=== PATIENT | male | born 1970 | race Caucasian/White ===

== ENCOUNTER → 2018-02-21 | Day surgery (SDC) | payer OTHER ==
[2018-02-17 13:02] VITALS: BMI 28.5
[~2018-02-21] MED LIST: ALPRAZolam 0.25 MG TAB PO PRN; ALPRAZolam 0.5 MG TAB PO PRN; ASPIRIN 325 MG TAB PO STA; ATORVASTATIN 80 MG TAB PO STA; HEPARIN SODIUM 1,000 UN/ML (10ML VL) ONE; IOHEXOL 350 MG/ML 125ML BOTTLE INJ ONE; LIDOCAINE 2% INJ 20 MG/ML (20 ML MDV) ONE; MIDAZOLAM 2 MG/2 ML VIAL ONE; NITROGLYCERIN SL TABS 0.4 MG TAB SUBLINGUAL PRN; RX INFO: IV CONTRAST WAS GIVEN 1 EACH MISC MISCELLANE PRN; SODIUM CHLORIDE 0.9% 1,000 ML IV SCH; SODIUM CHLORIDE 0.9% 1,000 ML in EMPTY BAG 1 BAG IV ONE; VERAPAMIL 2.5 MG/ML 2 ML AMP ONE
[2018-02-21 06:34] VITALS: RESP 18; TEMP 98.2
[2018-02-21 06:40] LABS: Basophils # (A) 0.1 k/uL (0-0.2); Basophils % (A) 1 %; Eosinophils # (A) 0.3 k/uL (0-0.7); Eosinophils % (A) 4 %; HGB 16.1 gm/dL (13.0-17.5); Lymphocytes # (A) 2.1 k/uL (1.0-4.8); Lymphocytes % (A) 26 %; MCH 31.7 pg (25.0-35.0); MCHC 35.9 g/dL (31.0-37.0); MCV 88.3 fL (80.0-100.0); Mean Platelet Volume 6.9; Monocytes # (A) 0.5 k/uL (0-1.0); Monocytes % (A) 6 %; Neutrophils % (A) 62 %; Platelet Count 276 k/uL (150-450); RBC 5.09 m/uL (4.30-5.90); RDW 12.9 % (11.5-15.5); WBC 8.1 k/uL (3.8-10.6)
[2018-02-21 06:51] LABS: Anion Gap 12 mmol/L; Blood Urea Nitrogen 10 mg/dL (9-20); Carbon Dioxide 24 mmol/L (22-30); Chloride 107 mmol/L (98-107); Glucose 93 mg/dL (74-99); Potassium 4.2 mmol/L (3.5-5.1); Sodium 143 mmol/L (137-145)
[2018-02-21] MEDS: MIDAZOLAM 2 MG/2 ML VIAL IV ONE ×3 (07:56→08:15)
[2018-02-21] MEDS: LIDOCAINE 2% INJ 20 MG/ML SQ ONE ×2 (07:59→08:16)
--- NOTE | 2018-02-21 09:59 | CC ---
CARDIAC CATHETERIZATION REPORT DATE OF SERVICE: 02/21/2018 PERFORMING PHYSICIAN: Iftikhar Leggett MD, Blanker Operator. PROCEDURE PERFORMED: 1. Selective right and left coronary angiogram. 2. Left heart catheterization. INDICATION: This is a pleasant 47-year-old gentleman who is known to have coronary artery disease and prior stenting of the RCA in the setting of acute inferior ST-elevation myocardial infarction, was experiencing intermittent episodes of chest discomfort concerning for angina. He underwent a stress test and that revealed apical ischemia. In view of that, a heart catheterization was recommended. APPROACH: Right common femoral artery. COMPLICATION: None. LEVEL OF SEDATION: Moderate at 33 minutes. PROCEDURE DESCRIPTION: After obtaining an informed consent, the patient was brought to the Cardiac Painting Supervisor. Initially, I tried to access the right radial artery, but I was unable. At that point, I did access the right common femoral artery and I did a 6-Swedish sheath in the right common femoral artery. After that, I did perform selective right and left coronary angiogram using JR4 and JL4 catheter. Subsequently, I did left heart catheterization using 6-Swedish pigtail catheter. The procedure was completed without any complication. SELECTIVE CORONARY ANGIOGRAM: 1. The right coronary artery is a large caliber vessel and it is a dominant vessel. The proximal RCA is stented with intermediate in-stent restenosis, appeared to be in the range of 50% to 60%. 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 It does have a RHONDA-3 flow. The RCA distally appeared to be angiographically normal. It bifurcates into PDA and PLV branches, both are angiographically normal. 2. The left main is angiographically normal. It bifurcates into the left circumflex and left anterior descending artery. 3. The left circumflex is a large caliber vessel and it is a nondominant vessel. The proximal left circumflex is angiographically normal. The mid left circumflex is normal as well and gives rise into 2 obtuse marginal branches. The circumflex distally is angiographically normal. 4. The left anterior descending artery. the proximal LAD appeared to be angiographically normal. It does gives rise into 2 diagonal branches both are angiographically normal. The mid LAD is normal and gives rise into a third diagonal branch which seems to be angiographically normal. The LAD distally is angiographically normal. HEMODYNAMICS: The left ventricular end-diastolic pressure was 12 mmHg and no gradient was identified across the aortic valve. CONCLUSION: 1. 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 The vessel seems to be flow limiting. The intermediate disease in the mid right coronary artery is involving a stent that goes to the acute marginal branch. 2. Normal left main coronary artery. 3. Normal left circumflex coronary artery. 4. Normal left anterior descending artery. 5. Normal left ventricular end-diastolic pressure. POSTPROCEDURE MANAGEMENT: Maximize medical treatment and follow up with the patient. MMODL / IJN: [id number] /
--- NOTE | 2018-02-21 10:08 | LTR ---
February 21, 2018 Re: Pavel Fisher Dear Dr. Sheridan: Mr. Pavel Fisher underwent a heart catheterization because of intermittent episodes of chest discomfort concerning for angina as well as abnormal myocardial perfusion imaging stress test. The heart catheterization revealed intermediate disease involving the proximal and mid RCA. to be flow limiting. I want to thank you for allowing me to participate in his care and please do not hesitate to call if you have any question or concern. Sincerely, MD SHANIA Eisenberg / MAICOLN: [id number] /
[2018-02-21 15:03] VITALS: BP 104/63; PULSE 92
== END ==
LOC: CATHCVL 05:55
PROVIDERS: ATTEND Internal Medicine Interventional Cardiology
DX: I25.110 Atherosclerotic heart disease of native coronary artery with unstable angina pectoris (principal); T82.855A Stenosis of coronary artery stent, initial encounter; I10 Essential (primary) hypertension; F17.210 Nicotine dependence, cigarettes, uncomplicated; E78.5 Hyperlipidemia, unspecified; Z82.49 Family history of ischemic heart disease and other diseases of the circulatory system; Z79.02 Long term (current) use of antithrombotics/antiplatelets; Z79.82 Long term (current) use of aspirin; Z79.899 Other long term (current) drug therapy; Z88.8 Allergy status to other drugs, medicaments and biological substances
CPT/HCPCS: 93458; 80048; 85025; C1769 ×3; C1894 ×2; C1760; J2001; J2250; Q9967

== ENCOUNTER → 2018-03-28 | Outpatient (CLI) | payer OTHER ==
[2018-03-28 14:41] LABS: HCT 48.2 % (39.0-53.0); HGB 16.5 gm/dL (13.0-17.5); MCH 30.8 pg (25.0-35.0); MCHC 34.2 g/dL (31.0-37.0); MCV 90.1 fL (80.0-100.0); Platelet Count 325 k/uL (150-450); RBC 5.35 m/uL (4.30-5.90); RDW 13.2 % (11.5-15.5)
[2018-03-28 14:53] LABS: Anion Gap 14 mmol/L; Blood Urea Nitrogen 15 mg/dL (9-20); Carbon Dioxide 26 mmol/L (22-30); Chloride 103 mmol/L (98-107); Potassium 4.8 mmol/L (3.5-5.1); Sodium 143 mmol/L (137-145)
== END ==
LOC: LABPAT 14:08
PROVIDERS: ATTEND Internal Medicine Interventional Cardiology
DX: Z01.812 Encounter for preprocedural laboratory examination (principal); R07.9 Chest pain, unspecified
CPT/HCPCS: 36415; 80051; 82565; 84520; 85027

== ENCOUNTER 2018-03-30 07:56 | Day surgery (SDC) | payer OTHER ==
[2018-03-28 16:03] VITALS: BMI 28.6
[~2018-03-30 07:56] MED LIST changes: -ALPRAZolam 0.25 MG TAB PO PRN; -ALPRAZolam 0.5 MG TAB PO PRN; -HEPARIN SODIUM 1,000 UN/ML (10ML VL) ONE; -IOHEXOL 350 MG/ML 125ML BOTTLE INJ ONE; -LIDOCAINE 2% INJ 20 MG/ML (20 ML MDV) ONE; -MIDAZOLAM 2 MG/2 ML VIAL ONE; -NITROGLYCERIN SL TABS 0.4 MG TAB SUBLINGUAL PRN; -RX INFO: IV CONTRAST WAS GIVEN 1 EACH MISC MISCELLANE PRN; -SODIUM CHLORIDE 0.9% 1,000 ML IV SCH; -VERAPAMIL 2.5 MG/ML 2 ML AMP ONE
[2018-03-30] MEDS: MIDAZOLAM 2 MG/2 ML VIAL IV ONE ×2 (09:30→09:34)
[2018-03-30] MEDS ORDERED: LIDOCAINE 2% INJ 20 MG/ML SQ ONE ×2 (09:32→09:34)
[2018-03-30] MEDS ORDERED: BIVALIRUDIN BOLUS 250 MG/50 ML IV ONE (09:35)
[2018-03-30] MEDS ORDERED: BIVALIRUDIN 250 MG in SODIUM CHLORIDE 0.9% 50 ML IV ONE ×2 (09:36→10:28)
[2018-03-30] MEDS ORDERED: fentaNYL (PF) 50 MCG/ML 2 ML AMP IV ONE (09:40)
[2018-03-30] MEDS: NITROGLYCERIN 1000MCG/10ML SYRINGE INTRACORON ONE ×3 (09:43→10:36)
[2018-03-30] MEDS ORDERED: IOPAMIDOL-370 125ML BTL INJ ONE (10:29)
[2018-03-30] MEDS ORDERED: CLOPIDOGREL 75 MG TAB PO ONE (10:38)
[2018-03-30] MEDS ORDERED: IOPAMIDOL-370 100ML BTL INJ ONE (10:41)
[2018-03-30] MEDS ORDERED: NITROGLYCERIN SL TABS 0.4 MG TAB SUBLINGUAL PRN ×2 (10:45→10:46)
[2018-03-30] MEDS ORDERED: MAG HYDROX/AL HYDROX/SIMETH 30 ML CUP PO PRN (10:46)
[2018-03-30] MEDS ORDERED: RX INFO: IV CONTRAST WAS GIVEN 1 EACH MISC MISCELLANE PRN (10:46)
[2018-03-30] MEDS ORDERED: ZOLPIDEM 5 MG TAB PO PRN (10:46)
[2018-03-30] MEDS ORDERED: ATROPINE SULFATE 0.1 MG/ML 10ML SYRINGE IV PRN (10:46)
[2018-03-30] MEDS ORDERED: SODIUM CHLORIDE 0.9% 1,000 ML IV SCH (11:00)
[2018-03-30 17:23] VITALS: RESP 18
--- NOTE | 2018-03-30 19:48 | PTCA ---
PERCUTANEOUSTRANS CORORONARY ANGIOGRAPHY DATE OF SERVICE: March 30, 2018 PERFORMING PHYSICIAN: Iftikhar Leggett MD, erisa attorney. PROCEDURE PERFORMED: 1. Selective right coronary angiogram. 2. Intravascular ultrasound IVUS of the RCA. 3. Successful stenting of the mid RCA using 3.0 x 18 mm Xience ESSENCE with good angiographic results. 4. Successful stenting of the proximal RCA using 3.5 x 15 mm Xience ESSENCE with good angiographic results. INDICATION: This is a pleasant 47-year-old gentleman with known history of coronary artery disease and prior stenting of the RCA, who was experiencing unstable angina. He underwent a heart catheterization a few weeks ago and that showed intermediate to severe disease involving the mid RCA. He was treated medically, but continues to have chest discomfort. In view of that, a PCI of the RCA was recommended. APPROACH: Right common femoral artery. COMPLICATION: None. LEVEL OF SEDATION: Moderate, sedation length of 69 minutes. PROCEDURE DESCRIPTION: After obtaining an informed consent, the patient was brought to cardiac labor utilization superintendent. The right common femoral artery was cannulated using micropuncture technique, the micropuncture wire passed easily, then I placed a 6-Cypriot sheath in the right common femoral artery. After that, I did start anticoagulation using Angiomax. Subsequently I did engage the RCA using JR4 guiding catheter. A whisper wire was used to wire the right coronary artery and I advanced the wire to the PLV branch of the RCA. Initially, I tried to advance 2.5 x 12 mm balloon but the balloon will not cross the stented segment in the mid RCA. At that point, I was able to advance 1.5 mm balloon and did multiple balloon angioplasty of the mid RCA using the 1.5 mm balloon. After that I did advance the 2.5 x 12 mm balloon and I did again balloon angioplasty of the mid RCA where the balloon was inflated under 14 atmospheres for 20 seconds. Subsequently I was able to advance 3.0 x 18 mm Xience ESSENCE where the stent was positioned under fluoroscopy guidance and deployed under 14 atmospheres for 20 seconds with the following angiogram showing good angiographic results. There was a lesion intermediate to severe lesion involving the proximal RCA, but at that point, I decided to do an IVUS of that lesion, so after that IVUS catheter was advanced to the proximal RCA and I did manual pullback. The minimal luminal area of the proximal RCA was 3.5 mm2, so I decided to stent that segment where I deployed 3.5 x 15 mm Xience ESSENCE where the stent was positioned under fluoroscopy guidance and deployed under its nominal pressure. The following angiogram showed good angiographic results and the procedure was completed without any complication. POSTPROCEDURE MANAGEMENT: 1. Dual anti-platelet therapy. 2. Coronary risk factor modifications. 3. Follow up with the patient. MMBALWINDER / MAICOLN: [id number] /
[2018-03-30] MEDS: METOPROLOL TARTRATE 12.5 MG TAB PO SCH (20:37)
[2018-03-30] MEDS ORDERED: LOSARTAN 25 MG TAB PO SCH (21:00)
[2018-03-30 21:25] LABS: Glucose,Whole Blood 139 mg/dL (75-99)
[2018-03-31 06:11] LABS: Glucose,Whole Blood 118 mg/dL (75-99)
[2018-03-31 06:48] LABS: Basophils % (A) 0 %; Eosinophils # (A) 0.1 k/uL (0-0.7); Eosinophils % (A) 1 %; HCT 43.8 % (39.0-53.0); HGB 14.9 gm/dL (13.0-17.5); Lymphocytes # (A) 1.9 k/uL (1.0-4.8); Lymphocytes % (A) 27 %; MCH 30.1 pg (25.0-35.0); MCHC 33.9 g/dL (31.0-37.0); MCV 88.7 fL (80.0-100.0); Mean Platelet Volume 7.2; Monocytes # (A) 0.4 k/uL (0-1.0); Monocytes % (A) 6 %; Neutrophils # (A) 4.7 k/uL (1.3-7.7); Neutrophils % (A) 65 %; Platelet Count 267 k/uL (150-450); RBC 4.94 m/uL (4.30-5.90); WBC 7.2 k/uL (3.8-10.6)
[2018-03-31 07:06] LABS: Anion Gap 10 mmol/L; Blood Urea Nitrogen 12 mg/dL (9-20); Calcium 9.1 mg/dL (8.4-10.2); Carbon Dioxide 25 mmol/L (22-30); Chloride 105 mmol/L (98-107); Glucose 109 mg/dL (74-99); Potassium 4.1 mmol/L (3.5-5.1); Sodium 140 mmol/L (137-145)
[2018-03-31] MEDS ORDERED: PANTOPRAZOLE 40 MG TABLET PO SCH (07:30)
[2018-03-31] MEDS ORDERED: ISOSORBIDE MONONITRATE ER 30 MG TAB.ER.24H PO SCH (09:00)
[2018-03-31] MEDS ORDERED: NON-FORMULARY DRUG (Omega-3 Fatty Acids/Fish Oil [Fish Oil 1,000 Mg Softgel] 1 EACH) PO SCH (09:00)
[2018-03-31] MEDS ORDERED: CLOPIDOGREL 75 MG TAB PO SCH (09:00)
[2018-03-31] MEDS ORDERED: ASPIRIN 325 MG TAB PO SCH (09:00)
[2018-03-31] MEDS ORDERED: SPIRONOLACTONE 25 MG TAB PO SCH (09:00)
[2018-03-31 09:17] VITALS: BP 117/72; PULSE 78; TEMP 97.5
[2018-03-31] MEDS: METOPROLOL TARTRATE 12.5 MG TAB PO SCH (09:21)
[2018-03-31] MEDS ORDERED: CYANOCOBALAMIN 500 MCG TAB PO SCH (12:00)
[2018-03-31] MEDS ORDERED: MULTIVITAMINS, THERA 1 EACH TAB PO SCH (12:00)
--- NOTE | 2018-03-31 14:43 | DS ---
DISCHARGE SUMMARY ADMISSION DATE: March 30, 2018 DISCHARGE DATE: March 31, 2018 BRIEF HISTORY: This is a very pleasant 47-year-old gentleman with a past medical history significant for coronary artery disease who underwent stenting of the RCA in the past was experiencing chest discomfort concerning for angina. He underwent heart catheterization a few weeks ago and that revealed severe disease involving the mid RCA by the bifurcation of the acute marginal branch with possible spontaneous dissection involving that area. I did treat him medically for few weeks and on maximized medical treatment. He continues to have chest discomfort and because of that, I brought him yesterday and I did balloon angioplasty and stenting of the mid RCA and proximal RCA with good angiographic results and without any complication. The procedure was performed from the right groin which is soft nontender and without any bruises. He will be discharged home on dual anti-platelet therapy and I will follow up with him in the office next week. SHANIA / DIRK: [id number] /
[2018-03-31] MEDS ORDERED: ATORVASTATIN 80 MG TAB PO SCH (21:00)
== END 2018-03-31 09:50 | disposition home or self-care (01) ==
LOC: CATHCVL 07:56 → 6SEL 10:49 → CATHCVL 03-31 09:50
PROVIDERS: ATTEND Internal Medicine Interventional Cardiology
DX: I25.110 Atherosclerotic heart disease of native coronary artery with unstable angina pectoris (principal); R94.31 Abnormal electrocardiogram [ECG] [EKG]; I10 Essential (primary) hypertension; E78.5 Hyperlipidemia, unspecified; Z82.49 Family history of ischemic heart disease and other diseases of the circulatory system; Z95.5 Presence of coronary angioplasty implant and graft; Z88.8 Allergy status to other drugs, medicaments and biological substances; F17.210 Nicotine dependence, cigarettes, uncomplicated; Z79.02 Long term (current) use of antithrombotics/antiplatelets; Z79.82 Long term (current) use of aspirin; Z79.899 Other long term (current) drug therapy
CPT/HCPCS: 80048; 85025; C9600; C1769 ×4; C1725 ×3; C1887; C1894; C1753; C1874; C1760; J2001; J2250; J3010; J0583; Q9967 ×2

== ENCOUNTER 2020-05-07 06:21 | Day surgery (SDC) | payer OTHER ==
[2020-05-03 14:10] VITALS: BMI 27.3
[~2020-05-07 06:21] MED LIST changes: +ALPRAZolam 0.25 MG TAB PO PRN; +ALPRAZolam 0.5 MG TAB PO PRN; +NITROGLYCERIN SL TABS 0.4 MG TAB SUBLINGUAL PRN
[2020-05-07] MEDS ORDERED: SODIUM CHLORIDE 0.9% 1,000 ML IV ONE (07:01)
[2020-05-07 07:15] LABS: Basophils # (A) 0.1 k/uL (0-0.2); Basophils % (A) 1 %; Eosinophils # (A) 0.3 k/uL (0-0.7); Eosinophils % (A) 4 %; HGB 18.1 gm/dL (13.0-17.5); Lymphocytes # (A) 1.8 k/uL (1.0-4.8); Lymphocytes % (A) 29 %; MCH 32.9 pg (25.0-35.0); MCHC 33.6 g/dL (31.0-37.0); MCV 98.1 fL (80.0-100.0); Monocytes # (A) 0.4 k/uL (0-1.0); Monocytes % (A) 6 %; Neutrophils # (A) 3.5 k/uL (1.3-7.7); Neutrophils % (A) 57 %; Platelet Count 196 k/uL (150-450); RBC 5.51 m/uL (4.30-5.90); RDW 13.3 % (11.5-15.5); WBC 6.2 k/uL (3.8-10.6)
[2020-05-07] MEDS ORDERED: LIDOCAINE 1% INJ 10MG/ML (20 ML MDV) ONE (07:21)
[2020-05-07 07:22] VITALS: RESP 16; TEMP 97.8
[2020-05-07] MEDS ORDERED: VERAPAMIL 2.5 MG/ML 2 ML AMP ONE (07:22)
[2020-05-07 07:29] LABS: African American GFR (CKD) >90 (>60 ml/min/1.73 sqM); Anion Gap 7 mmol/L; Blood Urea Nitrogen 10 mg/dL (9-20); Calcium 9.8 mg/dL (8.4-10.2); Carbon Dioxide 24 mmol/L (22-30); Chloride 109 mmol/L (98-107); Glucose 121 mg/dL (74-99); Non-African American GFR(CKD) >90 (>60 ml/min/1.73 sqM); Potassium 4.1 mmol/L (3.5-5.1); Sodium 140 mmol/L (137-145)
[2020-05-07] MEDS ORDERED: MIDAZOLAM 2 MG/2 ML VIAL IV ONE ×2 (07:32→07:43)
[2020-05-07] MEDS ORDERED: LIDOCAINE 1% INJ 10MG/ML (20 ML MDV) SQ ONE ×2 (07:35→07:37)
[2020-05-07] MEDS ORDERED: HYDROmorphone 1 MG/ML 1 ML SYRINGE ONE (07:38)
[2020-05-07] MEDS ORDERED: HYDROmorphone 1 MG/ML 1 ML SYRINGE IVP ONE (07:40)
[2020-05-07] MEDS ORDERED: IOPAMIDOL-370 125ML BTL INJ ONE (07:52)
[2020-05-07] MEDS ORDERED: SODIUM CHLORIDE 0.9% 1,000 ML IV SCH (08:00)
[2020-05-07] MEDS ORDERED: RX INFO: IV CONTRAST WAS GIVEN 1 EACH MISC MISCELLANE PRN (08:00)
--- NOTE | 2020-05-07 08:06 | P.PCN ---
Date of Procedure: 05/07/20 Operative Findings: CARDIAC CATHETERIZATION PERFORMING PHYSICIAN: Iftikhar Leggett MD, RPVI PROCEDURE PERFORMED: 1. Selective right and left coronary angiogram 2. Left heart catheterization INDICATION: This is a very pleasant 49-year-old gentleman with coronary artery disease and prior stenting of the right coronary artery was experiencing intermittent episodes of chest discomfort concerning for angina. Because of that he was brought to undergo a heart catheterization COMPLICATION: None APPROACH: Right common femoral artery LEVEL OF SEDATION: Moderate with sedation length of 19 minutes PROCEDURE DESCRIPTION: After obtaining an informed consent, the patient was brought to cardiac custodial laborer. Local anesthesia was performed using lidocaine subcutaneously. The right common femoral artery was cannulated using Seldinger technique, the guidewire passed easily, following that we advanced a 6 Micronesian sheath dilator assembly, the wire and dilator were removed and sheath was flushed. Selective right and left coronary angiogram using a 6-Micronesian JR4 and JL catheters. Following that we did left heart catheterization using 6-Micronesian pigtail catheter. The procedure was completed there was no complication. SELECTIVE CORONARY ANGIOGRAM: The right coronary artery: Is a large caliber vessel and a dominant vessel. The proximal RCA appears to be normal. The mid RCA stented with disease appears to be in the range of 40%. The RCA distally appears to have a haziness was accessed on previous heart catheterization but with a good flow and without any obstructive disease. Then the RCA bifurcates into PDA and PLV branches both appeared to be angiographically normal Left main: Is angiographically normal. Bifurcates into LCx, ramus intermedius, and left anterior descending artery The left circumflex: Is a large caliber vessel and a dominant vessel. The proximal LCx is angiographically normal. The mid LCx gives rises into first and second OM branches and both appeared to be angiographically normal. The LCx distally is angiographically normal and gives rises into a PDA which seems to be angiographically normal The left anterior descending artery: Is a large caliber vessel. The LAD is angiographically normal in the proximal, mid, and distal portion. Approximately gives rises into the first diagonal branch and in the mid gives rises into second diagonal branch. Both diagonal appears to be angiographically normal HEMODYNAMICS: The LVEDP was 42 8 mmHg without significant gradient across aortic valve CONCLUSION: 1. Mild in-stent restenosis involving the RCA. Haziness in the distal RCA with normal flow and without any obstructive disease. The haziness was accessed on previous heart catheterization 2. Normal left coronary systems 3. Normal LVEDP POSTPROCEDURE MANAGEMENT: 1. Medical treatment 2. Follow-up with the patient
[2020-05-07 12:46] VITALS: BP 114/74; PULSE 88
== END 2020-05-07 12:46 | disposition home or self-care (01) ==
LOC: CATHCVL 06:21
PROVIDERS: ATTEND Internal Medicine Interventional Cardiology
DX: T82.855A Stenosis of coronary artery stent, initial encounter (principal); I25.110 Atherosclerotic heart disease of native coronary artery with unstable angina pectoris; F17.200 Nicotine dependence, unspecified, uncomplicated; I10 Essential (primary) hypertension; E78.5 Hyperlipidemia, unspecified; I42.9 Cardiomyopathy, unspecified; Z95.5 Presence of coronary angioplasty implant and graft; Z82.49 Family history of ischemic heart disease and other diseases of the circulatory system; Z79.02 Long term (current) use of antithrombotics/antiplatelets; Z79.82 Long term (current) use of aspirin; Z79.899 Other long term (current) drug therapy; Z88.8 Allergy status to other drugs, medicaments and biological substances
CPT/HCPCS: 93458; 80048; 85025; C1894; C1769 ×2; C1760; U0003; J2250; J2001; J1170; Q9967

== ENCOUNTER → 2021-06-25 | Outpatient (CLI) | payer OTHER ==
[2021-06-25 20:02] LABS: HGB 17.8 g/dL (13.0-17.0); MCH 33.3 pg (27.0-32.0); MCHC 34.2 g/dL (32.0-37.0); MCV 97.2 fL (80.0-97.0); Mean Platelet Volume 10.8 fL (9.5-12.2); Platelet Count 212 X 10*3/uL (140-440); RBC 5.35 X 10*6/uL (4.40-5.60); RDW 14.2 % (11.5-14.5); WBC 7.44 X 10*3/uL (4.50-10.00)
[2021-06-26 01:57] LABS: Albumin/Globulin Ratio 1.6 (1.60-3.17); Anion Gap 9.9 mmol/L (4.00-12.00); BUN/Creat Ratio 14.44 Ratio (12.00-20.00); Calcium 9.3 mg/dL (8.7-10.3); Carbon Dioxide 22.1 mmol/L (21.6-31.8); Chol/HDL Ratio 4.31; Globulin 2.5 g/dL (1.6-3.3); LDL Cholesterol,Calculated 90.6 mg/dL (0.0-131.0); Magnesium 1.6 mg/dL (1.5-2.4); Non-African American GFR(CKD) 99.2 (60.0-200.0); Potassium 4.1 mmol/L (3.5-5.5); Total Bilirubin 0.5 mg/dL (0.2-1.2); Total Protein 6.5 g/dL (6.2-8.2); VLDL Calculation 48.4 mg/dL (5.00-40.00)
== END | disposition home or self-care (01) ==
LOC: LABWHC1 14:06
PROVIDERS: ATTEND Nurse Practitioner Adult Health
DX: I25.10 Atherosclerotic heart disease of native coronary artery without angina pectoris (principal); I10 Essential (primary) hypertension; E78.5 Hyperlipidemia, unspecified
CPT/HCPCS: 36415; 80053; 80061; 83735; 84443; 84481; 85027